=== PATIENT | male | born 2005 | race Caucasian/White ===

== ENCOUNTER 2023-03-27 17:14 | Emergency (ER) | payer MEDICAID, SELFPAY ==
[2023-03-27 18:22] VITALS: BP 147/72; PULSE 75; RESP 16; TEMP 36.9; O2SAT 99; BMI 22.6
--- NOTE | 2023-03-27 18:22 | ED_ITS ---
<Statement entered by Abram Barrera DO - 08/04/23 15:52> I did review the note HPI - General Adult General Chief complaint: General Medical Stated complaint: ? std Time Seen by Provider: 03/27/23 18:27 Source: patient Mode of arrival: ambulatory Limitations: no limitations History of Present Illness HPI narrative: 18-year-old male presents requesting STD testing, he reports he is sexually active without protection with a female who tested positive for either gonorrhea or chlamydia. He is unsure. Denies any symptoms. He states he just wants antibiotics for this. He tried to go to his primary care provider but had no success. No history of STDs. Denies testicular pain, swelling, fevers, chills, nausea, vomiting, back pain, abdominal pain. Related Data Previous Rx's Medication Instructions Recorded doxycycline hyclate 100 mg capsule 100 mg PO BID 10 days #20 caps 03/27/23 metronidazole 500 mg tablet 500 mg PO BID 7 days #14 tabs 03/27/23 Allergies Allergy/AdvReac Type Severity Reaction Status Date / Time No Known Allergies Allergy Verified 03/27/23 18:24 Review of Systems Review of Systems: Constitutional : No Weight loss, No Fever, No Chills, No Fatigue, No Malaise ENT/Mouth : No sore throat, No Rhinorrhea Eyes: No Eye Pain, No Swelling, No Redness Cardiovascular : No Chest Pain, No SOB, No Dyspnea on Exertion, No Orthopnea, No Edema, No Palpitations Respiratory : No Cough, No Sputum, No Wheezing Gastrointestinal : No Nausea, No Vomiting, No Diarrhea, No Constipation, No abdominal Pain, No Hematochezia, No Melena Genitourinary : No Dysuria, No Urinary Frequency, No Hematuria, Musculoskeletal : No joint pain, No Myalgias, No Joint Swelling Skin : No Skin Lesions, No rash Neuro : No Weakness, No Numbness, No Dizziness, No Headache Psych : No Anxiety/Panic, No Depression All other systems reviewed and are negative Yes all other systems are reviewed and are negative [facility] Past Medical History Attestation statement: The following information was validated with the patient. Source: old records reviewed and nursing notes reviewed Social History Social History Advance Directives: No Advance Directives Information Provided: No Physical Exam ED Vital Signs: Vital Signs - 24 hr 03/27/23 18:22 Temperature 98.4 F Pulse Rate 75 Respiratory Rate 16 Blood Pressure 147/72 H Pulse Oximetry 99 Oxygen Delivery Method Room Air BMI result Body Mass Index 22.6 vss Appearance: Alert.? Oriented X3.? No acute distress.? Head: Normocephalic, atraumatic, no step-offs or deformities Eyes: Pupils equal, round and reactive to light.? CVS: Normal heart rate and rhythm.? Pulses normal.? Respiratory: No respiratory distress.? Breath sounds normal.? Abdomen: Soft and nontender.? Skin: Skin warm and dry.? Normal skin color.? Normal skin turgor.? Extremities: No lower extremity edema.? No calf ttp. 5/5 strength to bilateral upper and lower extremities Neuro: Oriented X 3.? No motor deficit.? No sensory deficit. CN 2-12 intact Sensitive exam: Deferred Course Reevaluation(s) Reevaluation #1: Patient discharge, medications at the pharmacy for STDs. Advised to go get full panel STD testing. Reevaluation #2: + for chlamydia and gonorrhea, with adequate treatment. No further action needed patient knew he was + when he came in. Time: 17:09 Medications Administered Discontinued Medications Generic Name Dose Route Start Last Admin Trade Name Cathleen PRN Reason Stop Dose Admin Ceftriaxone Sodium 500 mg/ 0 mg 03/27/23 18:22 03/27/23 18:35 Lidocaine HCl 1 ml IM 03/27/23 18:23 1 kit ONCE ONE Administration Doxycycline Monohydrate 100 mg 03/27/23 18:22 03/27/23 18:35 Doxycycline Monohydrate 100 Mg Capsule PO 03/27/23 18:23 100 mg ONCE ONE Administration Metronidazole 500 mg 03/27/23 18:22 03/27/23 18:35 Metronidazole 500 Mg Tablet PO 03/27/23 18:23 500 mg ONCE ONE Administration Medical Decision Making Medical Decision Making [facility] Narrative: 1825 18-year-old male was exposed either gonorrhea or chlamydia requesting STD testing and prophylactic treatment. Physical exam benign. Deferred sensitive exam Concerns for sexually transmitted infections such as gonorrhea, chlamydia. Other differentials include other STDs such as HIV, hepatitis-C, syphilis, herpes. No testicular pain or swelling per patient, unlikely torsion. Plan at this time STD testing and prophylactic treatment. Patient agrees to prophylactic treatment for gonorrhea, chlamydia and trichomonas. 500mg IM ceftriaxone has been given here and scripts for doxycycline 100 mg po BID X 7 days and metronidazole 500 mg po BID X 7 days have been given to the patient. Educated on safe sex practices, full pannel STD testing and speaking to? partners on possible STD. Differential Diagnosis Differential Diagnoses: The differential diagnosis associated with the presentation includes Concerns for sexually transmitted infections such as gonorrhea, chlamydia. Other differentials include other STDs such as HIV, hepatitis-C, syphilis, herp es. No testicular pain or swelling per patient, unlikely torsion. Admission/Observation Consideration of admission/observation: Escalation of care including admission/observation considered Lab Data Labs: Lab Results 03/27/23 Range/Units 17:59 Chlam trachomat DNA PCR DETECTED A (Not Detect.) N.gonorrhoeae DNA (PCR) DETECTED A (Not Detect.) Core Measures AMI core measures followed: Yes Measure exclusions: not indicated Critical Care Time Critical Care Time Critical Care Time: No Discharge Plan Discharge Clinical Impression: Encounter for assessment of STD exposure Patient Disposition: Home, Self-Care Instructions: Sexually Transmitted Diseases (ED), Safe Sex Practices (ED) Additional Instructions: Take your medications as prescribed. If you were prescribed antibiotics today, it is important that you take your medication to their entirety, do not skip any doses, do not finish them early. Follow-up with your primary care provider this week. Return to the emergency department with new or worsening symptoms. Such as fevers, chills, chest pain, shortness of breath, nausea, vomiting, dizziness, headache, vision changes, lethargy In case of emergency call 911 You were treated here today with ceftriaxone, a medication that treats gonorrhea. I have sent to your pharmacy Metronidazole that covers trichomonas, and Doxycycline which covers for chlamydia. Please be reevaluated by a healthcare provider after completing your antibiotics. Do not stop them early, do not skip any doses. Until you are reevaluated by a health care provider please practice safe sex as disucussed. Please also have a conversation with your sexual partners.? I also advise you to obtain full panel STD testing to test for other STDs including HIV, Hepatitis B & C and syphilis with your PCP or a local clinic. Prescriptions: New doxycycline hyclate 100 mg capsule 100 mg PO BID 10 Days Qty: 20 0RF metronidazole 500 mg tablet 500 mg PO BID 7 Days Qty: 14 0RF Referrals: Physician,Unknown J [Primary Care Provider] - 2 days Interventions: ED Discharge Assessment Last Done: 03/27/23 18:37 Discharge Date/Time: 03/27/23 18:37
[2023-03-27] MEDS: cefTRIAXone sodium 500 MG, Lidocaine HCl 1 % MPF 1 ML IM (18:35)
[2023-03-27] MEDS: Doxycycline Monohydrate 100 MG CAPSULE PO (18:35)
[2023-03-27] MEDS: metroNIDAZOLE 500 MG TABLET PO (18:35)
[2023-03-28 02:34] LABS: CT PCR DETECTED (Not Detect.); NG PCR DETECTED (Not Detect.)
== END 2023-03-27 18:37 | disposition home or self-care (01) ==
PROVIDERS: Student in an Organized Health Care Education/Training Program; Emergency Provider Student in an Organized Health Care Education/Training Program
DX: Z20.2 Contact with and (suspected) exposure to infections with a predominantly sexual mode of transmission (principal)
CPT/HCPCS: 0353U; 96372; 99282; 99284; J0696